=== PATIENT | male | born 2000 | race Caucasian/White ===

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

== ENCOUNTER 2020-02-25 20:23 | Emergency (ER) | payer OTHER, MEDICAID ==
--- NOTE | 2020-02-25 20:47 | EDM.PDOC ---
ED HPI GENERAL MEDICAL PROBLEM - General Chief Complaint: Cardiovascular Problem Stated Complaint: HEART BEATS FAST, ALMOST PASSES OUT. Time Seen by Provider: 02/25/20 20:46 Source of Information: Reports: Patient History Limitations: Reports: No Limitations - History of Present Illness INITIAL COMMENTS - FREE TEXT/NARRATIVE: 1 week h/o racing heart worse when stands up, now has pain LUQ-left lower chest region. Left Upper Abdomen Pain Score (Numeric/FACES): 5 - Related Data Allergies Allergy/AdvReac Type Severity Reaction Status Date / Time No Known Allergies Allergy Verified 02/25/20 21:06 Home Meds: Home Meds . [No Known Home Meds] 06/27/19 [History] Past Medical History - Past Health History Medical/Surgical History: Denies Medical/Surgical History Social & Family History - Family History Family Medical History: No Pertinent Family History - Caffeine Use Caffeine Use: Reports: Coffee, Soda ED ROS GENERAL - Review of Systems Review Of Systems: Comprehensive ROS is negative, except as noted in HPI. ED EXAM, GENERAL - Physical Exam Exam: See Below Exam Limited By: No Limitations General Appearance: Alert, WD/WN, No Apparent Distress, Anxious Eye Exam: Bilateral Eye: PERRL (pupils ER @ 4mm) Ears: Hearing Grossly Normal Throat/Mouth: Normal Voice, No Airway Compromise Head: Atraumatic Neck: Non-Tender, Full Range of Motion Respiratory/Chest: No Respiratory Distress Cardiovascular: Regular Rate, Rhythm GI/Abdominal: Soft, Non-Tender (Male) Exam: Deferred Rectal (Males) Exam: Deferred Neurological: Alert, Oriented, Normal Cognition, Normal Gait, No Motor/Sensory Deficits Psychiatric: Normal Affect, Normal Mood Skin Exam: Warm, Dry, Normal Color Lymphatic: No Adenopathy Course - Vital Signs Last Recorded V/S: Last Vital Signs Temp 36.4 C 02/25/20 20:39 Pulse 88 02/25/20 20:39 Resp 19 02/25/20 20:39 BP 125/86 02/25/20 20:39 Pulse Ox 100 02/25/20 20:39 - Orders/Labs/Meds Orders: Active Orders 24 hr Category Date Time Status EKG 12 Lead [EKG Documentation Completion] [RC] STAT Care 02/25/20 20:45 Active Labs: Laboratory Tests 11/29/20 11/29/20 11/29/20 Range/Units 20:28 20:55 20:55 WBC 6.8 (5.0-10.0) 10^3/uL RBC 4.65 (4.6-6.2) 10^6/uL Hgb 14.5 (14.0-18.0) g/dL Hct 40.0 (40.0-54.0) % MCV 86.0 (80-100) fL MCH 31.2 (27.0-34.0) pg MCHC 36.3 H (33.0-35.0) g/dL Plt Count 272 (150-450) 10^3/uL Neut % (Auto) 64.3 (42.2-75.2) % Lymph % (Auto) 24.8 (20.5-50.1) % [place] % (Auto) 9.2 H (2-8) % Eos % (Auto) 1.6 (1.0-3.0) % Baso % (Auto) 0.1 (0.0-1.0) % Sodium 137 (136-145) mmol/L Potassium 4.2 (3.5-5.1) mmol/L Chloride 100 (98-107) mmol/L Carbon Dioxide 31 (21-32) mmol/L Anion Gap 10.2 (7-13) mEq/L BUN 17 (7-18) mg/dL Creatinine 0.88 (0.70-1.30) mg/dL Est Cr Clr Drug Dosing 99.96 mL/min Estimated GFR (MDRD) > 60 BUN/Creatinine Ratio 19.3 (No establ ref range) Glucose 94 (74-99) mg/dL Calcium 9.2 (8.5-10.1) mg/dL Total Bilirubin 0.5 (0.2-1.0) mg/dL AST 12 L (15-37) U/L ALT 21 (16-63) U/L Alkaline Phosphatase 95 (46-116) U/L Troponin I < 0.017 (0.000-0.056) ng/mL Total Protein 7.8 (6.4-8.2) g/dL Albumin 4.2 (3.4-5.0) g/dL Globulin 3.6 Albumin/Globulin Ratio 1.2 Urine Opiates Screen Negative (NEGATIVE) Ur Oxycodone Screen Negative (NEGATIVE) Urine Methadone Screen Negative (NEGATIVE) Ur Barbiturates Screen Negative (NEGATIVE) U Tricyclic Antidepress Negative (NEGATIVE) Ur Phencyclidine Scrn Negative (NEGATIVE) Ur Amphetamine Screen Negative (NEGATIVE) U Methamphetamines Scrn Negative (NEGATIVE) Urine MDMA Screen Negative (NEGATIVE) U Benzodiazepines Scrn Negative (NEGATIVE) Urine Cocaine Screen Negative (NEGATIVE) U Marijuana (THC) Screen Negative (NEGATIVE) - Re-Assessments/Exams Free Text/Narrative Re-Assessment/Exam: 02/25/20 21:47 results discussed with pt. Departure - Departure Time of Disposition: 21:47 Disposition: Home, Self-Care 01 Condition: Good Clinical Impression: Palpitations Instructions: Palpitations, [id number] Forms: ED Department Discharge Additional Instructions: 1) rest 2) see clinic for STRESS TEST, HOLTER MONITOR, ECHOCARDIOGRAM 3) avoid sodas and junk foods Sepsis Event Note (ED) - Focused Exam Vital Signs: Vital Signs Temp Pulse Resp BP Pulse Ox 02/25/20 20:39 36.4 C 88 19 125/86 100 - My Orders Last 24 Hours: My Active Orders 02/25/20 20:45 EKG 12 Lead [EKG Documentation Completion] [RC] STAT - Assessment/Plan Last 24 Hours: My Active Orders 02/25/20 20:45 EKG 12 Lead [EKG Documentation Completion] [RC] STAT
[2020-02-25 21:23] LABS: ANION GAP 10.2 mEq/L (7-13); CHLORIDE,CL 100 mmol/L (98-107); SODIUM,NA 137 mmol/L (136-145)
--- NOTE | 2020-02-25 21:30 | CR ---
PROCEDURE INFORMATION: Exam: XR Chest, 1 View Exam date and time: 02/25/2020 9:22 PM Age: 19 years old Clinical indication: Other: Chest pain TECHNIQUE: Imaging protocol: XR of the chest Views: 1 view. COMPARISON: No relevant prior studies available. FINDINGS: Lungs: Unremarkable. No consolidation. Pleural space: Unremarkable. No pleural effusion. No pneumothorax. Heart/Mediastinum: Unremarkable. No cardiomegaly. Bones/joints: Unremarkable. IMPRESSION: No acute findings.
== END 2020-02-25 22:00 | disposition home or self-care (01) ==
LOC: DL.ED 20:23
DX: R00.2 Palpitations (principal); R10.12 Left upper quadrant pain
CPT/HCPCS: 36415; 71045; 80053; 80305-QW; 84484; 85025; 93005; 99285-25

== ENCOUNTER 2020-04-12 19:55 | Emergency (ER) | payer OTHER, MEDICAID ==
[2020-04-12 20:34] LABS: AMPHETAMINES,URINE NEGATIVE (NEGATIVE); BARBITURATES,URINE NEGATIVE (NEGATIVE); BENZODIAZEPINE,URINE NEGATIVE (NEGATIVE); MDMA (ECSTASY), URINE NEGATIVE (NEGATIVE); METHADONE,URINE NEGATIVE (NEGATIVE); METHAMPHETAMINES,URINE NEGATIVE (NEGATIVE); OPIATES,URINE NEGATIVE (NEGATIVE); OXYCODONE,URINE NEGATIVE (NEGATIVE); PHENCYCLIDINE,URINE NEGATIVE (NEGATIVE); TCA,URINE NEGATIVE (NEGATIVE)
[2020-04-12 20:41] LABS: ANION GAP 13.3 mEq/L (7-13); CHLORIDE,CL 103 mmol/L (98-107); SODIUM,NA 141 mmol/L (136-145)
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
== END 2020-04-12 22:02 | disposition home or self-care (01) ==
LOC: DL.ED 19:55
DX: M62.831 Muscle spasm of calf (principal); R00.2 Palpitations; M25.521 Pain in right elbow; M79.631 Pain in right forearm; Z72.0 Tobacco use
CPT/HCPCS: 36415; 80053; 80305-QW; 80307; 84484; 85025; 85379; 85610; 93005; 99283; 99285-25

== ENCOUNTER 2020-07-06 02:08 | Emergency (ER) | payer MEDICAID, OTHER ==
[2020-07-06 03:38] LABS: ANION GAP 13.1 mEq/L (7-13); CHLORIDE,CL 102 mmol/L (98-107); SODIUM,NA 140 mmol/L (136-145)
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
[2020-07-06] MEDS ORDERED: Ibuprofen 400 MG Tab PO ONE (04:03)
== END 2020-07-06 04:12 | disposition home or self-care (01) ==
LOC: DL.ED 02:08
DX: S09.90XA Unspecified injury of head, initial encounter (principal); R07.81 Pleurodynia; Y04.0XXA Assault by unarmed brawl or fight, initial encounter
CPT/HCPCS: 36415; 71101; 80053; 80305; 80307; 81001; 85025; 99283; 99284; A9270

== ENCOUNTER 2020-08-27 14:07 | Emergency (ER) | payer OTHER, MEDICAID ==
[2020-08-27] MEDS ORDERED: Ketorolac 30 MG/ML SDV IM ONE (14:19)
[2020-08-27] MEDS ORDERED: Cyclobenzaprine 10 MG Tab PO ONE (14:19)
--- NOTE | 2020-08-27 14:19 | EDM.PDOC ---
ED HPI GENERAL MEDICAL PROBLEM - General Chief Complaint: Back Pain or Injury Stated Complaint: INJURED BACK AT WORK Time Seen by Provider: 08/27/20 14:13 Source of Information: Reports: Patient, Old Records, RN, RN Notes Reviewed History Limitations: Reports: No Limitations - History of Present Illness INITIAL COMMENTS - FREE TEXT/NARRATIVE: Pt presents to ER from work by POV with c/o a low back injury at work today. Pt claims he and another man were lifting a heavy object when he had sudden onset of severe low-middle back pain when he twisted and heard a pop sound. Pt feels like he cannot stand up straight, and c/o intensely painful muscle spasms. Denies fall or blunt force injury. Denies saddle area numbness, loss of bowel or bladder control, radiating pain, or motor weakness to the legs. Onset: Today, Sudden Onset Date: 08/27/20 Location: Reports: Back Quality: Reports: Ache, Sharp, Other (Spasms) Severity: Severe Improves with: Reports: None Worsens with: Reports: Movement Context: Reports: Lifting Associated Symptoms: Reports: No Other Symptoms Middle Back Pain Score (Numeric/FACES): 10 - Related Data Allergies Allergy/AdvReac Type Severity Reaction Status Date / Time No Known Allergies Allergy Verified 07/06/20 02:22 Home Meds: Home Meds . [No Known Home Meds] 06/27/19 [History] Past Medical History - Past Health History Medical/Surgical History: Denies Medical/Surgical History Cardiovascular History: Reports: Other (See Below) Other Cardiovascular History: 04/12/20 states had ZYO patch to monitor "skipped beats" states it was removed 5 days ago. states won't know the results for 10- 15 days. Psychiatric History: Reports: Anxiety Social & Family History - Family History Family Medical History: No Pertinent Family History - Caffeine Use Caffeine Use: Reports: Coffee, Soda - Living Situation & Occupation Living situation: Reports: with Family, Other (Adopted) Occupation: Employed ED ROS GENERAL - Review of Systems Review Of Systems: Comprehensive ROS is negative, except as noted in HPI. ED EXAM,LOWER BACK PAIN/INJURY - Physical Exam Exam: See Below Exam Limited By: No Limitations General Appearance: Alert, WD/WN, No Apparent Distress, Thin Throat/Mouth: Normal Voice, No Airway Compromise Head: Atraumatic, Normocephalic Neck: Normal Inspection, Supple, Non-Tender, Full Range of Motion Respiratory/Chest: No Respiratory Distress, Lungs Clear, Chest Non-Tender Cardiovascular: Normal Peripheral Pulses, Regular Rate, Rhythm GI/Abdominal: Normal Bowel Sounds, Soft, Non-Tender, No Organomegaly, No Distention, No Abnormal Bruit, No Mass Back Exam: Decreased Range of Motion (lumbar), Muscle Spasm (Thoracic and lumbar regions), Paraspinal Tenderness (Thoracic and lumbar region), Vertebral Tenderness (Thoraco-lumbar regional tenderness), Other (Maintains a position of comfort slightly flexed at the waist.). No: CVA Tenderness (L), CVA Tenderness (R) Extremities: Normal Inspection, Normal Range of Motion, Non-Tender, No Pedal Edema, Normal Capillary Refill Neurological: Alert, Normal Mood/Affect, Normal Dorsiflexion, Normal Plantar Flexion, Normal Reflexes, No Motor/Sensory Deficits, Oriented x 3, Other (Stiff antalgic gait) Psychiatric: Normal Affect, Normal Mood Skin Exam: Warm, Dry, Intact, Normal Color, No Rash Course - Vital Signs Last Recorded V/S: Last Vital Signs Temp 99.2 F 08/27/20 14:16 Pulse 88 08/27/20 14:16 Resp 14 08/27/20 14:16 BP 111/71 08/27/20 14:16 Pulse Ox 94 L 08/27/20 14:16 - Orders/Labs/Meds Orders: Active Orders 24 hr Category Date Time Status Lumbar Spine 2 or 3V [CR] Urgent Exams 08/27/20 14:19 Taken Meds: Medications Discontinued Medications Generic Name Dose Route Start Last Admin Trade Name Sam PRN Reason Stop Dose Admin Cyclobenzaprine HCl 10 mg 08/27/20 14:19 Cyclobenzaprine 10 Mg Tab PO 08/27/20 14:20 ONETIME ONE Ketorolac Tromethamine 30 mg 08/27/20 14:19 Ketorolac 30 Mg/Ml Sdv IM 08/27/20 14:20 ONETIME ONE - Radiology Interpretation Free Text/Narrative:: XR L-spine: no fractures or compressions, see Rad. report. Departure - Departure Time of Disposition: 14:48 Disposition: Home, Self-Care 01 Condition: Good Clinical Impression: Spasm of back muscles, Work related injury Strain of mid-back Qualifiers: Encounter type: initial encounter Qualified Code(s): S29.012A - Strain of muscle and tendon of back wall of thorax, initial encounter - Discharge Information *PRESCRIPTION DRUG MONITORING PROGRAM REVIEWED*: Not Applicable *COPY OF PRESCRIPTION DRUG MONITORING REPORT IN PATIENT MIRIAM: Not Applicable Instructions: Thoracic Strain, Acute Back Pain, Adult Forms: ED Department Discharge Additional Instructions: Rx: Cyclobenzaprine 10mg Rx: Naprosyn 500mg Alternate moist hot packs and ice packs to area of back pain. No lifting, bending, or twisting of the back. Follow up in clinic with your primary doctor in 6 or 7 days. Sepsis Event Note (ED) - Focused Exam Vital Signs: Vital Signs Temp Pulse Resp BP Pulse Ox 08/27/20 14:16 99.2 F 88 14 111/71 94 L - My Orders Last 24 Hours: My Active Orders 08/27/20 14:19 Lumbar Spine 2 or 3V [CR] Urgent - Assessment/Plan Last 24 Hours: My Active Orders 08/27/20 14:19 Lumbar Spine 2 or 3V [CR] Urgent
--- NOTE | 2020-08-27 14:47 | CR ---
EXAMINATION: Lumbar Spine 2 V SEX: Male AGE: 20 years CLINICAL HISTORY: 20-year-old male complaining of low back pain (lifting injury). Interpretation: Negative exam. 1. Homogeneous normal bone mineral density for age and gender. 2. Slight exaggeration of the lumbar lordosis (paravertebral muscle spasm?) and symmetric normal psoas shadows. 3. Normal height and alignment of the 5 lumbar vertebra. 4. No congenital abnormality, pathologic skeletal lesion, lumbar fracture, spondylolisthesis or abnormal intervertebral disc space narrowing. No reactive hypertrophic arthritic changes or spondylolisthesis. 5. Symmetric spacing normal-appearing SI and hip joints. No foreign bodies.
== END 2020-08-27 15:30 | disposition home or self-care (01) ==
LOC: DL.ED 14:07
DX: S29.012A Strain of muscle and tendon of back wall of thorax, initial encounter (principal); X50.9XXA Other and unspecified overexertion or strenuous movements or postures, initial encounter; Y99.0 Civilian activity done for income or pay
CPT/HCPCS: 72100; 96372; 99283; 99283-25; A9270-GY; J1885

== ENCOUNTER 2020-09-20 14:15 | Emergency (ER) | payer OTHER, MEDICAID | END 2020-09-20 16:48 | disposition left against medical advice (07) | LOC: DL.ED 14:15 | DX: Z53.21 Procedure and treatment not carried out due to patient leaving prior to being seen by health care provider (principal) ==